=== PATIENT | female | born 1945 | race Caucasian/White ===

== ENCOUNTER 2020-05-21 16:40 | Outpatient (CLI) | payer MEDICARE, SELFPAY ==
--- NOTE | ~2020-05-21 | US_ITS ---
EXAMINATION: US pelvic complete w TV EXAM DATE: 05/21/2020 17:36 INDICATION: Abnormal CT at outside institution found abnormal ovary. TECHNIQUE: Pelvic transabdominal and transvaginal sonogram was performed. There are multiple graysca le and Doppler images available for interpretation. There is no prior study for comparison. Correlat ion was made with noncontrast CT scans 07/06/2015, 01/20/2017. FINDINGS: Prior CT scans have demonstrated simple cystic right adnexal region, reportedly unchanged g oing back to 2012. On this exam there is right adnexal anechoic tubular cystic thickening, appearance is most consistent with hydrosalpinx, could be a chronic postoperative finding given the history pro vided and prior imaging available. Region measures 6.2 x 3.0 x 4.1 cm.. There is small amount of norm al ovarian parenchyma suspected. Uterus and left ovary are not identified. IMPRESSION: Serpiginous anechoic right adnexal structure most consistent with chronic hydrosalpinx. Reviewed, dictated and finalized at location A. IMPRESSION: Serpiginous anechoic right adnexal structure most consistent with c hronic hydrosalpinx.
== END 2020-05-21 16:41 | disposition home or self-care (01) ==
PROVIDERS: PCP Physician Assistant; Visit Provider Physician Assistant
DX: R93.5 Abnormal findings on diagnostic imaging of other abdominal regions, including retroperitoneum (principal)
CPT/HCPCS: 76830; 76856